=== PATIENT | female | born 1960 | race Caucasian/White ===

== ENCOUNTER → 2017-07-12 | Outpatient (CLI) | payer BC ==
[2015-06-28 08:13] VITALS: BP 152/84
--- NOTE | 2017-07-16 10:10 | MG ---
HISTORY: Right breast chronically palpable cyst/lump along the axilla Bilateral digital diagnostic mammography with CAD. Comparison: Multiple prior exams dating back to July 12, 2012 FINDINGS: Bilateral CC and MLO projections of the right and left breast were obtained. An XCCL view of the righ t breast was also obtained. Scattered fibroglandular tissue is seen to be present without significant interval change. No suspicious architectural distortion, mass or clustered microcalcifications can be observed to suggest malignancy. No skin thickening or nipple retraction is appreciated. No path ological lymphadenopathy can be identified. Benign-appearing calcifications are noted within the righ t and left breast. IMPRESSION: No mammographic evidence of malignancy. However, given the presence of palpable findings , targeted sonography is recommended. Patient could not undergo ultrasound at this time. ACR CATEGORY 0 - assessment incomplete; additional imaging recommended. Diagnostic CAD was utilized and reviewed. * 0 (ZERO) - ASSESSMENT INCOMPLETE; ADDITIONAL IMAGING IS NEEDED. * 1/1 (ONE) - NEGATIVE. * 2/II (TWO) - BENIGN FINDINGS. * 3/III (THREE) - PROBABLY BENIGN FINDING; SHORT INTERVAL FOLLOW-UP SUGGESTED. * 4/IV (FOUR) - SUSPICIOUS ABNORMALITY; BIOPSY SHOULD BE CONSIDERED. * 5/V - HIGHLY SUSPICIOUS OF MALIGNANCY; BIOPSY SHOULD BE PERFORMED. A NEGATIVE X-RAY REPORT SHOULD NOT DELAY BIOPSY IF A DOMINANT OR CLINICALLY SUSPICIOUS MASS IS PRESENT; 4 TO 8 PERCENT OF CANCERS ARE NOT IDENTIFIED BY X-RAY. A NEGA TIVE REPORT MAY REINFORCE THE CLINICAL IMPRESSION. ADENOSIS AND DENSE BREASTS MAY OBSCURE AN UNDERLY ING NEOPLASM. Reported By:
== END ==
LOC: RAD 13:40
PROVIDERS: ATTEND Internal Medicine
DX: N64.59 Other signs and symptoms in breast (principal)
CPT/HCPCS: 77066

== ENCOUNTER → 2017-07-31 | Outpatient (CLI) | payer BC ==
[2015-06-28 08:13] VITALS: BP 152/84
--- NOTE | 2017-07-31 14:11 | US ---
HISTORY: Palpable mass, right breast under arm Study: Diagnostic right breast ultrasound Comparison: Mammogram 07/12/2017, previous right breast ultrasound 07/21/2014 Findings: The region of palpable abnormality was scanned in the right lateral breast/right axilla. There was no suspicious solid mass identified. No cystic lesions or lymph nodes are seen. There is fatty tissue s een in this region measuring approximately 3.3 x 1.9 cm. IMPRESSION: No suspicious mass or adenopathy is seen corresponding to the palpable abnormality. There is fatty ti ssue demonstrated in the region measuring approximately 3.3 x 1.9 cm which could represent a lipoma. Follow-up right breast ultrasound in 6 months is recommended. ACR CATEGORY 3: PROBABLY BENIGN FINDING; SHORT INTERVAL FOLLOW-UP SUGGESTED. Reported By:
== END ==
LOC: RAD 13:13
PROVIDERS: ATTEND Internal Medicine
DX: N64.59 Other signs and symptoms in breast (principal); R92.8 Other abnormal and inconclusive findings on diagnostic imaging of breast
CPT/HCPCS: 76642